=== PATIENT | male | born 1955 | race Caucasian/White ===

== ENCOUNTER → 2020-06-13 | Outpatient (CLI) | payer OTHER | END | disposition home or self-care (01) | LOC: TOM 07:55 | PROVIDERS: ATTEND Orthopaedic Surgery | DX: R06.02 Shortness of breath (principal); Z86.16 Personal history of COVID-19 | CPT/HCPCS: 73721 ==

== ENCOUNTER 2020-08-12 10:32 | Outpatient (CLI) | payer OTHER | END 2020-08-12 10:34 | disposition home or self-care (01) | LOC: NUCLEAR 10:32 | PROVIDERS: ATTEND Orthopaedic Surgery | DX: I87.2 Venous insufficiency (chronic) (peripheral) (principal) ==

== ENCOUNTER → 2020-08-28 | Outpatient (CLI) | payer OTHER | END | disposition home or self-care (01) | LOC: MRI 11:45 | DX: M25.562 Pain in left knee (principal) | CPT/HCPCS: 73721 ==

== ENCOUNTER 2020-10-16 13:40 | Outpatient (CLI) | payer OTHER | END 2020-10-16 14:09 | disposition home or self-care (01) | LOC: TOM 13:40 | DX: J45.998 Other asthma (principal); Z86.16 Personal history of COVID-19; R06.09 Other forms of dyspnea; R06.02 Shortness of breath; R07.89 Other chest pain ==

== ENCOUNTER 2020-11-17 16:06 | Outpatient (CLI) | payer OTHER | END 2020-11-17 16:24 | disposition home or self-care (01) | LOC: RAD 16:06 | DX: M25.562 Pain in left knee (principal) ==

== ENCOUNTER 2021-05-04 12:31 | Outpatient (CLI) | payer OTHER | END 2021-05-04 12:44 | disposition home or self-care (01) | LOC: RAD 12:31 | PROVIDERS: ATTEND Orthopaedic Surgery Orthopaedic Surgery of the Spine | DX: M51.37 Other intervertebral disc degeneration, lumbosacral region (principal); M54.59 Other low back pain ==

== ENCOUNTER 2021-12-07 12:43 | Outpatient (CLI) | payer OTHER | END 2021-12-07 12:51 | disposition home or self-care (01) | LOC: RAD 12:43 | DX: J45.20 Mild intermittent asthma, uncomplicated (principal); I10 Essential (primary) hypertension ==